=== PATIENT | female | born 1940 | race Caucasian/White ===

== ENCOUNTER 2019-03-27 07:01 | Day surgery (SDC) | payer OTHER ==
[2019-03-26 12:35] LABS: BASOPHILS % (AUTO) 0.6 % (0.0-5.0); EOSINOPHILS % (AUTO) 0.6 % (0.0-8.0); HEMATOCRIT 41.3 % (36-48); LYMPHOCYTES % (AUTO) 18.1 % (21.0-51.0); MEAN CORPUSCULAR HEMOGLOBIN 31.3 pg (27.0-33.0); MEAN CORPUSCULAR HGB CONC 33.6 g/dL (32.0-36.0); MEAN CORPUSCULAR VOLUME 93.1 fL (79-99); MONOCYTES % (AUTO) 7.8 % (3.0-13.0); NEUTROPHILS % (AUTO) 72.9 % (40.0-77.0); NUCLEATED RED BLOOD CELLS 0.1 % (0.0-0.19); PLATELET COUNT (AUTO) 254 K/uL (130-400); RED BLOOD CELL COUNT(AUTO) 4.43 MIL/uL (4.00-5.50); RED CELL DISTRIBUTION WIDTH 15.3 % (11.0-15.5)
[2019-03-26 12:46] LABS: INR 1.16 (0.85-1.15); PARTIAL THROMBOPLASTIN TIME 33.1 SEC (26.3-35.5); PROTHROMBIN TIME 12.1 SEC (9.6-11.6)
[2019-03-26 12:49] LABS: CREATININE 0.9 mg/dL (0.5-1.5); POTASSIUM 4.6 mmol/L (3.5-5.1)
[2019-03-26 12:58] VITALS: BP 131/73
[~2019-03-27] VITALS: Ht 162.6 cm; Wt 70.2 kg
[2019-03-27] VITALS (9 sets, daily range): BP systolic 98–124; BP diastolic 42–85
[~2019-03-27 07:01] MED LIST: DIGO125T87 PO; FLEC50TA3 PO; LORA10TA7 PO; METO-391 PO; MONT10TA24 PO; RIVA20TA PO; TRIA1CAP6 PO
--- NOTE | 2019-03-27 07:23 | NUR ---
PATIENT ARRIVED PATIENT ARRIVED TO DAY PATIENT ACCOMPANIED BY SPOUSE (LIZ). PATIENT AAOX3, RESPIRATIONS UNLABORED, VITAL SIGNS STABLE, DENIES ANY PAIN AT THIS TIME. PROCEDURE VERIFIED AND CONFIRMED WITH PATIENT. PATIENT EXPLAINED HOSPITAL ROUTINE, ALL QUESTIONS/CONCERNS ADDRESSED. SIDERAILS UPX2, BED IN LOWEST POSITION, SIDERAILS UP X2.
[2019-03-27] MEDS ORDERED: PROPOFOL 10 MG/ML 20ML VIAL IV ONE (07:58)
[2019-03-27] MEDS ORDERED: SODIUM CHLORIDE 0.9% 1000ML 1,000 ML IV SCH (08:00)
--- NOTE | 2019-03-27 08:15 | NUR ---
CARDIOVERSION DR BATES AND DR OWENS IN ROOM WITH PATIENT SETTING UP FOR CARDIOVERSION WITH ANESTHESIA. 08 TIMEOUT DONE: CORRECT PROCEDURE VERIFIED, CORRECT PATIENT VERIFIED. 08 FIRST DOSE OF ANESTHESIA ADMINISTERED BY DR OWENS VIA IV 08 CARDIOVERSION DONE: PATIENT SHOCKED WITH 100 JORDAN, PATIENT ASLEEP (TOLERATED WELL) 0835 DR BATES AND DR OWENS WALKED OUT OF ROOM
--- NOTE | 2019-03-27 09:20 | NUR ---
DISCHARGE INSTRUCTIONS DISCHARGE INSTRUCTIONS PROVIDED TO PATIENT'S (LIZ). FOLLOW UP APPOINTMENT WITH DR BATES WAS PROVIDED. INSTRUCTIONS/HANDOUTS PROVIDED REGARDING CARDIOVERSION AFTER CARE AND SEDATION AFTER CARE. PATIENT'S SPOUSE VERBALIZED UNDERSTANDING AND ALL QUESTIONS/CONCERNS ADDRESSED.
--- NOTE | 2019-03-27 09:45 | NUR ---
PATIENT DISCHARGED FROM FACILITY VIA WHEELCHAIR. PATIENT TAKEN TO PRIVATE VEHICLE BY BUDDY WREN MA AND PATIENT DRIVEN HOME BY SPOUSE.
[2019-05-29] MEDS ORDERED: DIGO250T84 PO (12:48)
== END 2019-03-27 09:45 ==
LOC: DAH 07:01
PROVIDERS: ATTEND Internal Medicine Cardiovascular Disease
DX: I48.92 Unspecified atrial flutter (principal); I48.0 Paroxysmal atrial fibrillation; I10 Essential (primary) hypertension; J45.909 Unspecified asthma, uncomplicated; I49.5 Sick sinus syndrome; Z88.0 Allergy status to penicillin; Z95.0 Presence of cardiac pacemaker; Z79.01 Long term (current) use of anticoagulants; Z79.899 Other long term (current) drug therapy; Z98.890 Other specified postprocedural states
CPT/HCPCS: 36415; 80048; 85025; 85610; 85730; 92960; 93005 ×2; A4215; A4216; A4221; A4222; A4223 ×2; A4606; J2704; J7030

== ENCOUNTER 2019-05-31 05:42 | Day surgery (SDC) | payer OTHER ==
[2019-05-29 12:13] VITALS: BP 131/69
[2019-05-29 12:32] LABS: BASOPHILS % (AUTO) 0.8 % (0.0-5.0); EOSINOPHILS % (AUTO) 1.4 % (0.0-8.0); HEMATOCRIT 39.5 % (36-48); LYMPHOCYTES % (AUTO) 20.6 % (21.0-51.0); MEAN CORPUSCULAR HEMOGLOBIN 32.2 pg (27.0-33.0); MEAN CORPUSCULAR HGB CONC 33.4 g/dL (32.0-36.0); MEAN CORPUSCULAR VOLUME 96.4 fL (79-99); MONOCYTES % (AUTO) 10.4 % (3.0-13.0); NEUTROPHILS % (AUTO) 66.8 % (40.0-77.0); PLATELET COUNT (AUTO) 234 K/uL (130-400); RED CELL DISTRIBUTION WIDTH 14.3 % (11.0-15.5); WHITE BLOOD COUNT (AUTO) 7.2 K/uL (4.8-10.8)
[2019-05-29 12:35] LABS: CREATININE 0.9 mg/dL (0.5-1.5); POTASSIUM 4.2 mmol/L (3.5-5.1)
[2019-05-29 12:38] LABS: INR 1.02 (0.85-1.15); PARTIAL THROMBOPLASTIN TIME 29.6 SEC (26.3-35.5); PROTHROMBIN TIME 10.7 SEC (9.6-11.6)
[~2019-05-31] VITALS: Ht 157.5 cm; Wt 68.9 kg
[2019-05-31] VITALS (8 sets, daily range): BP systolic 11–125; BP diastolic 44–70
[~2019-05-31 05:42] MED LIST changes: -DIGO125T87 PO; +DIGO250T84 PO; -LORA10TA7 PO; +SODIUM CHLORIDE 0.9% 500ML 500 ML IV SCH
--- NOTE | 2019-05-31 06:00 | NUR ---
PATIENT ARRIVED PATIENT ARRIVED TO DAY PATIENT ACCOMPANIED BY SPOUSE (PINA). PATIENT AAOX3, RESPIRATIONS UNLABORED, VITAL SIGNS STABLE. PATIENT DENIES ANY PAIN AT THIS TIME. PROCEDURE CONFIRMED AND VERIFIED WITH PATIENT. HOSPITAL ROUTINE EXPLAINED TO PATIENT AND SPOUSE, BOTH VERBALIZED UNDERSTANDING. BANDAID RIGHT HEEL IN PLACE, DRY ABRASION PRESENT.PATIENT STATED THAT SHE "NICKED" HERSELF YESTERDAY. NO REDNESS OR DRAINAGE NOTED TO ABRASION.
[2019-05-31] MEDS ORDERED: BUPIVACAINE/PF 0.25% 30ML VIAL IJ ONE (07:10)
[2019-05-31] MEDS ORDERED: MEPERIDINE-PF 25 MG/ML SYG ONE ×2 (07:10→08:21)
[2019-05-31] MEDS ORDERED: MIDAZOLAM HCL 1 MG/ML 2ML VIAL ONE ×2 (07:10→08:21)
[2019-05-31] MEDS ORDERED: CEFAZOLIN SODIUM 1 GM VIAL ONE (07:10)
[2019-05-31] MEDS ORDERED: LIDOCAINE HCL 1% MDV 50ML VIAL ONE (07:10)
--- NOTE | 2019-05-31 07:26 | NUR ---
PATIENT TRANSFERRED PATIENT TAKEN TO C[facility] ;LAB VIA BED BY MELINA CHAMORRO. SPOUSE INSTRUCTED TO WAIT IN ROOM IN ORDER TO SPEAK WITH DR BATES AFTER PROCEDURE IS COMPLETE, SPOUSE VERBALIZED UNDERSTANDING.
[2019-05-31] MEDS ORDERED: VANCOMYCIN 1GM+NS 250ML 250 ML IV ONE ×2 (07:29→07:41)
[2019-05-31] MEDS ORDERED: SODIUM CHLORIDE 0.9% 1000ML 1,000 ML IV ONE (07:39)
[2019-05-31] MEDS ORDERED: TRAM50TA4 PO (08:58)
--- NOTE | 2019-05-31 09:15 | NUR ---
PATIENT RETURNED PATIENT BROUGHT BACK FROM [facility] VIA BED BY MELINA CHAMORRO. PATIENT AAOX3, RESPIRATIONS UNLABORED, VITAL SIGNS STABLE, DENIES ANY PAIN AT THIS TIME. DRESSING TO LEFT CHEST WALL IS DRY AND INTACT (OPSITE IN PLACE.) MINIMAL REDNESS NOTED AROUND OPSITE, NO BLEEDING, DRAINAGE NOTED, NO HEMATOMA NOTED. PATIENT'S SPOUSE AT BEDSIDE. PATIENT INSTRUCTED ON 3 HOURS OF BEDREST AND PT VERBALIZED UNDERSTANDING. SIDERAILS UP X2, BED IN LOWEST POSITION, CALL BARRIGA IN REACH.
--- NOTE | 2019-05-31 09:30 | NUR ---
SITE CHECK DRESSING TO LEFT CHEST WALL IS DRY AND INTACT (OPSITE IN PLACE.) MINIMAL REDNESS NOTED AROUND OPSITE, NO BLEEDING, DRAINAGE NOTED, NO HEMATOMA NOTED. PATIENT'S SPOUSE AT BEDSIDE. SIDERAILS UP X2, BED IN LOWEST POSITION, CALL BARRIGA IN REACH.
--- NOTE | 2019-05-31 11:35 | NUR ---
DISCHARGE INSTRUCTIONS DISCHARGE INSTRUCTIONS PROVIDED TO PATIENT'S SPOUSE, FOLLOW UP APPOINTMENTS PROVIDED, AND HANDOUTS PROVIDED. INSTRUCTED TO RESTART XARELTO ON 06/03/19 AND PRESCRIPTION PROVIDED FOR TRAMADOL. PATIENT'S SPOUSE VERBALIZED UNDERSTANDING. ALL QUESTIONS/CONCERNS ADDRESSED. Addendum: 05/31/19 at 1345 by CONTRERAS RODRIGUEZ RN RN PATIENT INSTRUCTED TO KEEP DRESSING IN PLACE AND KEEP IT DRY. DO NOT REMOVED UNTIL SEEN BY DR BATES IN OFFICE. PATIENT VERBALIZED UNDERSTANDING.
--- NOTE | 2019-05-31 12:45 | NUR ---
PATIENT DISCHARGED PATIENT DISCHARGED FROM FACILITY VIA WHEELCHAIR BY BUDDY WREN. PATIENT ABLE TO TRANSFER TO PRIVATE VEHICLE FROM WHEELCHAIR UNASSISTED, VEHICLE DRIVEN BY SPOUSE.
== END 2019-05-31 12:45 | disposition home or self-care (01) ==
LOC: DAH 05:42
PROVIDERS: ATTEND Internal Medicine Cardiovascular Disease
DX: Z45.010 Encounter for checking and testing of cardiac pacemaker pulse generator [battery] (principal); I48.3 Typical atrial flutter; I10 Essential (primary) hypertension; J45.909 Unspecified asthma, uncomplicated; I49.5 Sick sinus syndrome; Z79.01 Long term (current) use of anticoagulants; Z79.899 Other long term (current) drug therapy; Z88.0 Allergy status to penicillin
CPT/HCPCS: 33228; 36415; 80048; 85025; 85610; 85730; 93005; A4215; A4216; A4221; A4222; A4223 ×3; A4606; A4663; C1785; J2175 ×2; J2250 ×2; J3370 ×2; J3490 ×2; J7030; 99156; 99157; J0690

== ENCOUNTER 2019-09-25 05:50 | Day surgery (SDC) | payer OTHER ==
[~2019-09-25] VITALS: Ht 157.5 cm; Wt 70.8 kg
[~2019-09-25 05:50] MED LIST changes: +ACET-66 PO; +DIGO250T73 PO; -DIGO250T84 PO; +LORA10CA PO; +MONT10TA21 PO; -MONT10TA24 PO; -SODIUM CHLORIDE 0.9% 500ML 500 ML IV SCH; +TRAM50TA4 PO; -TRIA1CAP6 PO
[2019-09-25] MEDS ORDERED: SODIUM CHLORIDE 0.9% 1000ML 1,000 ML IV ONE (06:19)
[2019-09-25 06:29] VITALS: BP 126/66
[2019-09-25] MEDS ORDERED: PROPOFOL 10 MG/ML 20ML VIAL IV ONE (07:27)
[2019-09-25] MEDS ORDERED: LIDOCAINE HCL 2% 20ML ONE (07:28)
[2019-09-25 07:48] VITALS: BP 116/62
[2019-09-25 07:53] VITALS: BP 122/44
[2019-09-25 07:58] VITALS: BP 130/64
[2019-09-25 08:03] VITALS: BP 135/69
== END 2019-09-25 08:20 | disposition home or self-care (01) ==
LOC: DAH 05:50 → ENDO 05:50
PROVIDERS: ATTEND Internal Medicine Gastroenterology
DX: R13.10 Dysphagia, unspecified (principal); K22.2 Esophageal obstruction; K29.70 Gastritis, unspecified, without bleeding; K21.9 Gastro-esophageal reflux disease without esophagitis; M19.90 Unspecified osteoarthritis, unspecified site; Z95.0 Presence of cardiac pacemaker; Z85.820 Personal history of malignant melanoma of skin; Z79.01 Long term (current) use of anticoagulants; Z79.899 Other long term (current) drug therapy
CPT/HCPCS: 43239; 43248; 88305; 88342; A4215; A4221; A4222; A4223; A4606; A4620; A4663; J2704; J3490; J7030